=== PATIENT | male | born 1985 | race Caucasian/White ===

== ENCOUNTER 2023-10-18 11:43 | Emergency (ER) | payer OTHER ==
[~2023-10-18] VITALS: Ht 162.6 cm; Wt 68.0 kg
[2023-10-18] MEDS ORDERED: EPINEPHrine PFS 0.1 MG/ML SYR IVP ONE (11:45)
[2023-10-18] MEDS ORDERED: diphenhydrAMINE 50 MG/ML VIAL ONE (11:47)
[2023-10-18 11:49] VITALS: BP 108/66; PULSE 103; RESP 22; TEMP 99.3; O2SAT 95
[2023-10-18] MEDS: diphenhydrAMINE 50 MG CAP PO ONE (11:50)
[2023-10-18 12:00] VITALS: O2SAT 95
[2023-10-18] MEDS: diphenhydrAMINE 50 MG/ML VIAL IVP ONE (12:09)
[2023-10-18] MEDS: EPINEPHrine 1 MG/ML AMP IM ONE (12:10)
[2023-10-18] MEDS ORDERED: DIPH25TA53 PO (13:26)
[2023-10-18] MEDS ORDERED: PRED20TA5 PO (13:26)
[2023-10-18] MEDS ORDERED: EPIN1KIT31 IM (13:26)
== END 2023-10-18 15:28 | disposition home or self-care (01) ==
LOC: MED 11:43
DX: T63.441A Toxic effect of venom of bees, accidental (unintentional), initial encounter (principal); F12.90 Cannabis use, unspecified, uncomplicated; Y92.89 Other specified places as the place of occurrence of the external cause
CPT/HCPCS: 96372; 96374; 99284; J0171; J1200